=== PATIENT | female | born 1970 | race Caucasian/White ===

== ENCOUNTER 2022-01-11 11:30 | Outpatient (CLI) | payer OTHER ==
--- NOTE | 2022-01-11 15:19 | XRay Report ---
Lumbar spine 3 views INDICATION: Back pain FINDINGS: Scoliotic curvature the spine convexity to the left. No severe loss of vertebral body heigh t. Facet degenerative changes seen throughout. Sacrum and sacroiliac joints appear normal. Signer Name: Abhijeet Parks MD Signed: 01/11/2022 3:14 PM Workstation Name: [email or web address]
--- NOTE | 2022-01-11 15:21 | XRay Report ---
BILATERAL KNEE 6 VIEW(S) INDICATION / CLINICAL INFORMATION: M25.569 PAIN IN UNSPECIFIED KNEE COMPARISON: None available. FINDINGS: BONES / JOINT(S): No acute fracture or subluxation. 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 SOFT TISSUES: No significant abnormality. ADDITIONAL FINDINGS: None. Signer Name: Caleb Barrios MD Signed: 01/11/2022 3:17 PM Workstation Name: [id number]
== END 2022-01-11 11:31 | disposition home or self-care (01) ==
LOC: XRAY 11:30
PROVIDERS: ATTEND Internal Medicine
DX: M17.0 Bilateral primary osteoarthritis of knee (principal); M47.816 Spondylosis without myelopathy or radiculopathy, lumbar region
CPT/HCPCS: 72100